=== PATIENT | female | born 1995 | race Caucasian/White ===

== ENCOUNTER 2016-06-17 17:34 | Emergency (ER) | payer OTHER ==
[~2016-06-17] VITALS: Ht 160 cm; Wt 77.0 kg
[2016-06-17 20:18] VITALS: BP 129/78
== END 2016-06-17 20:40 | disposition home or self-care (01) ==
LOC: EMS 17:35
DX: H10.9 Unspecified conjunctivitis (principal)
CPT/HCPCS: 99283